=== PATIENT | female | born 1940 | race Caucasian/White ===

== ENCOUNTER 2016-11-09 11:56 | Inpatient (IN) | payer MEDICARE, OTHER ==
[~2016-11-09] VITALS: Ht 160 cm; Wt 72.6 kg
[2016-11-09] MEDS ORDERED: REQUIP2 MG PO (12:52)
[2016-11-09] MEDS ORDERED: TRAMADOL HCL50 MG PO (12:52)
[2016-11-09] MEDS ORDERED: REQUIP1 MG PO (12:52)
[2016-11-09] MEDS ORDERED: NEURONTIN 100100 MG PO (12:53)
[2016-11-09] MEDS ORDERED: [UNRECOGNIZED DRUG - OTHER] PO (12:54)
[2016-11-09] MEDS ORDERED: FERROUS SULFAT325 MG PO (12:55)
[2016-11-09] MEDS ORDERED: COMBIVENT0.074 GM/I INH (12:55)
[2016-11-09] MEDS ORDERED: REMERON15 MG PO (12:56)
[2016-11-09] MEDS ORDERED: QVAR8.7 G1 INH (12:56)
[2016-11-09] MEDS ORDERED: SPIRIVA HANDIH18 MCG INH (12:57)
[2016-11-09 15:56] LABS: BUN/CREATININE RATIO 30 (0-10)
[2016-11-09 17:47] LABS: HEMOGLOBIN 10.4 gm/dl (12.3-15.3); RED BLOOD COUNT 3.97 M/UL (4.00-5.10); WHITE BLOOD COUNT 19.5 K/UL (4.5-11.0)
[2016-11-10 04:42] LABS: BUN/CREATININE RATIO 47 (0-10)
[2016-11-10 05:19] LABS: HEMOGLOBIN 7.4 gm/dl (12.3-15.3); RED BLOOD COUNT 2.77 M/UL (4.00-5.10); WHITE BLOOD COUNT 9.9 K/UL (4.5-11.0)
[2016-11-11 04:56] LABS: HEMOGLOBIN 7.1 gm/dl (12.3-15.3); RED BLOOD COUNT 2.69 M/UL (4.00-5.10); WHITE BLOOD COUNT 9.9 K/UL (4.5-11.0)
[2016-11-11 05:13] LABS: BUN/CREATININE RATIO 50 (0-10)
[2016-11-12 04:37] LABS: RED BLOOD COUNT 2.62 M/UL (4.00-5.10); WHITE BLOOD COUNT 9.6 K/UL (4.5-11.0)
[2016-11-12 04:44] LABS: HEMOGLOBIN 6.8 gm/dl (12.3-15.3)
[2016-11-12 04:53] LABS: BUN/CREATININE RATIO 90 (0-10)
[2016-11-13 09:14] LABS: WHITE BLOOD COUNT 11.8 K/UL (4.5-11.0)
[2016-11-13 09:15] LABS: HEMOGLOBIN 10.7 gm/dl (12.3-15.3); RED BLOOD COUNT 4.1 M/UL (4.00-5.10)
[2016-11-13 09:30] LABS: BUN/CREATININE RATIO 70 (0-10)
[2016-11-14 03:11] LABS: HEMOGLOBIN 11.2 gm/dl (12.3-15.3); RED BLOOD COUNT 4.28 M/UL (4.00-5.10); WHITE BLOOD COUNT 11.9 K/UL (4.5-11.0)
[2016-11-14 03:31] LABS: BUN/CREATININE RATIO 42 (0-10)
--- NOTE | 2016-11-14 06:21 | NUR ---
UPDATED REPORT GIVEN TO ONCOMING SHIFT
[2016-11-15 03:16] LABS: HEMOGLOBIN 10.7 gm/dl (12.3-15.3); RED BLOOD COUNT 4.14 M/UL (4.00-5.10); WHITE BLOOD COUNT 9.4 K/UL (4.5-11.0)
[2016-11-15 03:39] LABS: BUN/CREATININE RATIO 53 (0-10)
--- NOTE | 2016-11-15 06:15 | NUR ---
Report given to oncoming shift.
[2016-11-16 04:35] LABS: HEMOGLOBIN 11.4 gm/dl (12.3-15.3); RED BLOOD COUNT 4.38 M/UL (4.00-5.10)
[2016-11-16 04:50] LABS: BUN/CREATININE RATIO 53 (0-10)
[2016-11-16 04:55] LABS: WHITE BLOOD COUNT 11.9 K/UL (4.5-11.0)
[2016-11-17 04:23] LABS: RED BLOOD COUNT 4.57 M/UL (4.00-5.10); WHITE BLOOD COUNT 11.7 K/UL (4.5-11.0)
[2016-11-17 04:38] LABS: BUN/CREATININE RATIO 47 (0-10)
[2016-11-17] MEDS ORDERED: MEDROL DOSEPAK 24 MG PO (09:55)
[2016-11-17] MEDS ORDERED: ZOSYN 4.5 GRAM4.5 GM IV (10:04)
[2016-11-17] MEDS ORDERED: PROTONIX40 MG PO (10:05)
[2016-11-17] MEDS ORDERED: NORVASC 5 MG TAB5 MG PO (10:05)
[2016-11-17] MEDS ORDERED: IPRAT-ALBUT 0.5-3 ML INH (10:07)
[2017-02-25] MEDS ORDERED: DIAMOX 250 MG250 MG PO (13:11)
[2017-02-25] MEDS ORDERED: PREDNISONE10 MG PO (13:18)
[2017-02-25] MEDS ORDERED: BROVANA15 MCG/2 M INH (13:19)
[2017-02-25] MEDS ORDERED: PULMICORT0.5 MG/2 M INH (13:20)
[2017-02-25] MEDS ORDERED: TYLENOL 325MG325 MG PO (13:22)
[2017-02-25] MEDS ORDERED: LOPRESSOR 25 MG25 MG PO (13:31)
== END 2016-11-17 08:58 | disposition home health service (06) | DRG 853 ==
LOC: CCU 11:56 → MED SURG 4 11-15 20:11
PROVIDERS: Emergency Medicine; Family Medicine; ADMIT Internal Medicine
PROC: 5A1945Z Respiratory Ventilation, 24-96 Consecutive Hours (ICD-10-PCS; 2016-11-09)
PROC: 02HV33Z Insertion of Infusion Device into Superior Vena Cava, Percutaneous Approach (ICD-10-PCS; 2016-11-09)
PROC: 0B9J8ZX Drainage of Left Lower Lung Lobe, Via Natural or Artificial Opening Endoscopic, Diagnostic (ICD-10-PCS; principal; 2016-11-11 10:00)
PROC: 30233N1 Transfusion of Nonautologous Red Blood Cells into Peripheral Vein, Percutaneous Approach (ICD-10-PCS; 2016-11-12)
PROC: 30233N1 Transfusion of Nonautologous Red Blood Cells into Peripheral Vein, Percutaneous Approach (ICD-10-PCS; 2016-11-12)
PROC: 02HV33Z Insertion of Infusion Device into Superior Vena Cava, Percutaneous Approach (ICD-10-PCS; 2016-11-16)
PROC: B548ZZA Ultrasonography of Superior Vena Cava, Guidance (ICD-10-PCS; 2016-11-16)
DX: A41.52 Sepsis due to Pseudomonas (principal); J15.1 Pneumonia due to Pseudomonas; J96.21 Acute and chronic respiratory failure with hypoxia; R65.21 Severe sepsis with septic shock; J96.22 Acute and chronic respiratory failure with hypercapnia; K92.2 Gastrointestinal hemorrhage, unspecified; D62 Acute posthemorrhagic anemia; E87.2 Acidosis; J44.0 Chronic obstructive pulmonary disease with (acute) lower respiratory infection; J98.11 Atelectasis; J44.1 Chronic obstructive pulmonary disease with (acute) exacerbation; J90 Pleural effusion, not elsewhere classified; E46 Unspecified protein-calorie malnutrition; R65.20 Severe sepsis without septic shock; D50.9 Iron deficiency anemia, unspecified; E87.70 Fluid overload, unspecified; I10 Essential (primary) hypertension; Z87.01 Personal history of pneumonia (recurrent); Z16.24 Resistance to multiple antibiotics; Z87.891 Personal history of nicotine dependence; Z68.28 Body mass index [BMI] 28.0-28.9, adult; Z99.81 Dependence on supplemental oxygen; Z79.899 Other long term (current) drug therapy; Z88.0 Allergy status to penicillin; Z80.6 Family history of leukemia; Z83.3 Family history of diabetes mellitus; Z82.49 Family history of ischemic heart disease and other diseases of the circulatory system
CPT/HCPCS: ECHO; 36415; 36600; 71010; 80048; 80053; 80202; 82272; 82607; 82728; 82746; 82803; 83540; 83550; 83605; 83735; 83880; 84132; 84439; 84443; 85027; 85045; 85610; 85730; 86850; 86900; 86901; 86920; 87040; 87070; 87077; 87186; 87205; 93005; 93306; 94002; 94003; 94640; 94664; 97110; 97116; 97530; 97535; C9113; J0360; J0692; J1120; J1650; J1756; J1940; J2270; J2920; J2930; J3370; J7030; J7040; J7050; J7070; J7509; P9016